=== PATIENT | female | born 1980 | race Caucasian/White ===

== ENCOUNTER 2017-08-10 08:46 | Day surgery (SDC) | payer BC, SELFPAY ==
[2017-08-10] VITALS (7 sets, daily range): BP systolic 122–150; BP diastolic 69–93; PULSE 71–89; RESP 16; TEMP 36.3–36.8; O2SAT 98–100; BMI 24.0
[2017-08-10 09:20] LABS: Internal QC Validated? YES +Cl - CLEAR BKGD; Pregnancy, Urine Negative Negative
[2017-08-10 09:30] LABS: Hematocrit 45.3 % (37-47); Hemoglobin 14.3 g/dl (12.0-15.0); Mean Corp Hgb Conc 31.6 g/gl (32-36); Mean Corpuscular Hgb 29.7 pg (27.0-32.0); Mean Corpuscular Volume 94.2 fL (81-99); Mean Platelet Vol. 9.7 fl (6.2-12.0); Platelet Count 266 K/mm3 (150-450); RBC Distribution Width CV 12.8 % (11.6-14.6); RBC Distribution Width SD 43.8 fl (35.1-43.9); Red Blood Count 4.81 M/mm3 (4.2-5.4)
[2017-08-10 09:37] LABS: Scan Indicated on CBC? Y/N NO
--- NOTE | 2017-08-10 11:11 | PCM.OP.BLANK ---
Operative Report Date of Procedure: 08/10/[address] Courtney Overton-Spencer Bead Stringer:none Preoperative diagnosis: Abnormal uterine bleeding Postoperative diagnosis: Same Procedure performed: Hysteroscopy, dilation and curettage using symphion tissue resection system Complications: None Implantable devices: none Estimated blood loss: 5 cc Drains: None Anesthesia: MAC Informed consent was obtained the patient was taken the operating room she was placed in supine position. She was given anesthesia. She was then placed in the [facility] where she was prepped and draped in the normal sterile fashion. At this time the weighted speculum was placed in the posterior fornix of vagina. Single-tooth tenaculum was used to gently grasp the anterior lip the cervix. At this time the uterine cavity was sounded to approximately 10 cm. Gentle dilatation was performed once adequate dilatation of the cervix was achieved the hysteroscope using normal saline as a distention medium was placed. small amount of tissue noted- one area of thicker tissue but did not appear polypoid was noted on anterior aspect of uterus. Otherwise no gross abnormalities. Tubal ostia visualized. This time hysteroscopy was complete. symphion tissue reresection system was used for endometrial curettings - pressure setting at 90 and. small amount of endometrial tissue removed. This will be sent to pathology for evaluation. Fluid deficit was 200cc however that was some fluid on the floor after procedure so i anticipate that to be less. Procedure was deemed complete successful there are no complications. Anticipated normal postoperative course. Instrument lap count correct ?2. Vaginal Sweep was negative.
--- NOTE | 2017-08-10 11:15 | OP.PCM_ITS ---
Operative Report Date of Procedure: 08/10/[address] Courtney Overton-Spencer Oyster Planter:none Preoperative diagnosis: Abnormal uterine bleeding Postoperative diagnosis: Same Procedure performed: Hysteroscopy, dilation and curettage using symphion tissue resection system Complications: None Implantable devices: none Estimated blood loss: 5 cc Drains: None Anesthesia: MAC Informed consent was obtained the patient was taken the operating room she was placed in supine position. She was given anesthesia. She was then placed in the [facility] where she was prepped and draped in the normal sterile fashion. At this time the weighted speculum was placed in the posterior fornix of vagina. Single-tooth tenaculum was used to gently grasp the anterior lip the cervix. At this time the uterine cavity was sounded to approximately 10 cm. Gentle dilatation was performed once adequate dilatation of the cervix was achieved the hysteroscope using normal saline as a distention medium was placed. small amount of tissue noted- one area of thicker tissue but did not appear polypoid was noted on anterior aspect of uterus. Otherwise no gross abnormalities. Tubal ostia visualized. This time hysteroscopy was complete. symphion tissue reresection system was used for endometrial curettings - pressure setting at 90 and. small amount of endometrial tissue removed. This will be sent to pathology for evaluation. Fluid deficit was 200cc however that was some fluid on the floor after procedure so i anticipate that to be less. Procedure was deemed complete successful there are no complications. Anticipated normal postoperative course. Instrument lap count correct ?2. Vaginal Sweep was negative.
--- NOTE | 2017-08-10 11:16 | PCM.DC.D&C ---
Discharge Diet: No Restrictions Discharge Activity: Return to Normal Activity, May Shower, May Take a Tub Bath - in 2 weeks. Allergies/Adverse Reactions: Allergies No Known Allergies Allergy (Verified 09/04/16 08:08) Medications to take at Discharge Pnv95/Ferrous Fumarate/FA [ Formula Tablet] 1 each PO DAILY 04/25/16 Cetirizine HCl [Zyrtec] 10 mg PO DAILY 08/03/17 Fluticasone 0.05% [Flonase Nasal [place]] 1 spray NASAL PRN PRN 08/03/17 Ibuprofen [Motrin] 600 mg PO Q6H PRN PRN 08/03/17 Norethindrone-E.estradiol-Iron [Loestrin Fe 1-20 Tablet] 1 each PO 08/03/17 Omeprazole [Prilosec] 20 mg PO DAILY 08/03/17 Primary Care Physician: Rabia Alves MD [Primary Care Provider] -
[2017-08-10] MEDS: Ondansetron 8 MG Tablet PO (12:22)
--- NOTE | 2017-08-11 | EMB_PTH ---
PATIENT: SAEED CESPEDES LOC: [facility] U#:[id number] AGE/SX: 37/F ROOM: RE08/10/[address]: Dr. Courtney Gregory, MDDOB: 1980 BED: DIS: 08/10/2017 SPEC #: [id number] RECD: 08/11/17 13:26 STATUS: MILLA MIRA #: [id number] TICO: 08/11/17 00:[address]: Courtney Gregory DEPT: SURGICAL PATHOLOGY RECD BY: Jabari Evans ENTERED: 08/11/17 13:26 SP TYPE: ENDOM BX/C OTHR DR: Dr. Rabia Alves MD Tissues: Endometrium, NOS Procedures: Surgery Specimen Level IV HEADER OPERATION: Hysteroscopy, D&C symphion polypectomy PRE-OP DIAGNOSIS: Abnormal uterine bleeding, endometrial polyp TISSUE SUBMITTED: Endometrial curettings MICROSCOPIC DIAGNOSIS Endometrial curettings: Fragments of benign endometrial tissue with extensive stromal breakdown. Focal changes suggestive of benign endometrial polyp. Fragments of myometrium. AUNG:marvin 08/14/17 MICROSCOPIC DESCRIPTION Slides are reviewed. GROSS DESCRIPTION Received in fixative is one container labeled with the patient's name and designated endometrial curettings. The specimen consists of multiple irregular fragments of garcia soft tissue mixed with blood clot that in aggregate measure 2.5 x 1.5 x 0.1 cm. The specimen is totally submitted in one cassette. AUNG:marvin 08/11/17 TC:5 CPT: 55896
== END 2017-08-10 12:50 | disposition home or self-care (01) ==
LOC: SDC 08:51 → AC 08:53
PROVIDERS: Family Provider Internal Medicine; PCP Internal Medicine; Visit Provider Obstetrics & Gynecology
PROC: (CPT 58558; principal; 2017-08-10 10:25)
DX: N93.9 Abnormal uterine and vaginal bleeding, unspecified (principal); N84.0 Polyp of corpus uteri; I34.1 Nonrheumatic mitral (valve) prolapse; Z79.899 Other long term (current) drug therapy
CPT/HCPCS: 00952; 58558; 81025; 85027; 88305; J7120; J2405

== ENCOUNTER 2018-11-16 07:05 | Inpatient (IN) | payer BC, SELFPAY ==
[2017-08-10 09:17] VITALS: BMI 24.0
[2018-11-16 07:16] VITALS: BMI 30.1
[2018-11-16] MEDS: Lactated Ringers 1,000 ML 50 ML IV (07:30)
[2018-11-16] MEDS: Oxytocin 30 units/NS 500 ml 30 UNITS/500 ML IV.SOLN IV (07:52)
[2018-11-16 07:53] LABS: Absolute Lymphocyte Count 1.39 X10^3/uL (0.83-4.51); Absolute Neutrophil Count 6.4 X10^3/uL (2.0-7.7); Basophil# 0.01 X10^3/uL; Basophil% 0.1 % (0-1); Eosinophil# 0.08 X10^3/uL; Eosinophils% 0.9 % (0-5); Hematocrit 38.8 % (37-47); Lymphocyte # 1.39 X10^3/ul (4.0); Lymphocyte % 16.5 % (19-41); Mean Corp Hgb Conc 33.5 g/dL (32-36); Mean Corpuscular Hgb 32.7 pg (27.0-32.0); Mean Corpuscular Volume 97.5 fL (81-99); Monocyte# 0.53 X10^3/uL; Monocyte% 6.3 % (0-10); NRBC Flagged by Analyzer 0 % (0-5); Neutrophil # 6.36 X10^3/uL (2.7-7.7); Neutrophil % 75.5 % (47-70); Platelet Count 162 K/mm3 (150-450); RBC Distribution Width CV 14.3 % (11.6-14.6); Red Blood Count 3.98 M/mm3 (4.2-5.4); White Blood Count 8.4 K/mm3 (4.4-11.0)
--- NOTE | 2018-11-16 08:28 | PCM.HP.OB ---
History Date of Admission: 11/16/18 Final RYAN: 11/16/18 Final RYAN Source: US <20 weeks Gestational age: 40 Weeks and 0 Days History of this : This is a 38 year-old, G 2P1 at 40 weeks gestation. Patient here for induction of labor for AMA. It is /2. Membranes intact. Allergies No Known Allergies Allergy (Verified 11/16/18 07:18) Home Medications: Home Medications Pnv No.95/Ferrous Fum/Folic AC [ Formula Tablet] 1 each PO DAILY 04/25/16 Smoking Status: Never smoker Alcohol: None Number of Fetus(es): 1 NST - FHR Rate Baby A Baseline: 150 Variability:: Moderate Accelerations:: 15 x 15 Decelerations:: None NST Reactive:: Yes FHR Category:: Category I Uterine Activity:: q2-5 History Past Pregnancies: Past Pregnancies Delivery Date Name GA/Weeks Outcome Route Weight Gender Labor Length Anesthesia Delivery Location Provider FOB Labs: A+, Rub imm, hep B neg, HIV NR GBS positive Expected Infant Delivery Method: Spontaneous Vaginal Review of Systems Constitutional: Denies: Anorexia Cardiovascular: Denies: Chest Pain Gastrointestinal: Denies: Abdominal Pain Physical Exam General: Alert, Oriented x3 Abdomen: Soft, Non Tender, Gravid Neurological: Cranial nerves II-XII grossly intact DYE BOX OPERATOR: Normal external genitalia Estimated gestational size: Appropriate for gestational size Presentation: Cephalic Cervix Dilation (cm): 4 Station: -2 Effacement (%): 70 Assessment/Plan This is a 38 year-old, G 2P1 at 40 weeks gestation-here for induction of labor for advanced maternal age. admit to L&D [facility] fhr/toco PCN for GBS Anticipate AROM performed- CLEAR
--- NOTE | 2018-11-16 12:11 | PCM.PN.BLA ---
Progress Note Pt seen at bedside, doing well. VE: /-2. Continue Pitocin.
[2018-11-16] MEDS: Oxytocin 30 units/NS 500 ml 30 UNITS/500 ML IV.SOLN 334 UNITS IV (14:06)
--- NOTE | 2018-11-16 14:21 | PCM.OPRPT ---
Vaginal Delivery Maternal Presentation: Medically Indicated Induction Method of Induction: Pitocin, Amniotomy Medical Reason for Induction: - - AMA Amniotic Membrane Rupture Type: Artificial Amniotic Fluid Description: Clear Final RYAN: 11/16/18 Final RYAN Source: US <20 weeks Gestational age: 40 Weeks and 0 Days Date of Procedure: 11/16/18 Pre-Operative Diagnosis: AMA, term gestation Post-Operative Diagnosis: live male Surgery/ Procedure Performed: Spontaneous Vaginal Delivery Type of Anesthesia: - - nitrous oxide Description of Procedure: prolonged patient down to 43 bpm. At this time patient was complete pushing with good maternal effort. an RML episiotomy was made to expedite delivery. was delivered with nuchal x1 reduced prior to delivery of the infant's shoulders. And also compound hand Presentation. delivered and cord clamped and cut- nursery evaluated infant. Presentation: Vertex Placental Delivery Description: Spontaneous Placenta Disposition: [facility] Cord Vessel Description: 3 Vessels Nuchal Cord Compression: With compression Cord Gases drawn per routine: ABG, VBG Cord Entanglement: Around neck x 1, loose Estimated Blood Loss: 350 A gender: Male (1 minute): 8 (5 minute): 9 Episiotomy Description: Right Mediolateral - repaired with 2-0 vicryl and 3-0 rapide. lidocaine injected prior to repair., 2nd degree Laceration: None Medications given after delivery: IV Pitocin Complications: None
[2018-11-16] MEDS: Ibuprofen 600 MG Tablet PO ×2 (16:42→22:40)
[2018-11-16] MEDS: 0.9% Saline Lock 10 ML Syringe IV (16:52)
[2018-11-16 17:45] VITALS: BP 131/67; PULSE 59; RESP 20; TEMP 37.6; O2SAT 97
[2018-11-16 23:35] VITALS: BP 114/74; PULSE 90; RESP 16; TEMP 36.4
[2018-11-17 03:38] VITALS: BP 106/69; PULSE 90; RESP 16; TEMP 36.5
--- NOTE | 2018-11-17 07:43 | PCM.PN.OB ---
Subjective: Seen at bedside, doing well. Patient reports mild lochia. Pain well controlled. Voiding without difficulty. Breast-feeding well. Is supplementing due to baby's blood sugar. Patient requesting DC home today if baby is discharged - Physical Exam General: Alert, Oriented x3 Abdomen: Soft, Non Tender, - - fundus firm Extremities: No Calf Tenderness Vital Signs Temp Pulse Resp BP Pulse Ox 97.7 F L 90 16 106/69 97 11/17/18 03:38 11/17/18 03:38 11/17/18 03:38 11/17/18 03:38 11/16/18 17:45 Oxygen Delivery Method Room Air Weight: 95.254 kg Body Mass Index (BMI) 30.1 Intake and Output for Last 24 Hours 11/15/18 11/16/18 11/17/18 23:59 23:59 23:59 Intake Total 1112.23 / 1112.23 Output Total 1925 / 1925 Balance -812.77 / -812.77 Laboratory Tests Past 24 Hrs 11/16/18 11/16/18 07:30 07:30 WBC 8.4 RBC 3.98 L Hgb 13.0 Hct 38.8 MCV 97.5 MCH 32.7 H MCHC 33.5 RDW Std Deviation 51.0 H RDW Coeff of Garcia 14.3 Plt Count 162 MPV 10.0 Immature Gran % (Auto) 0.700 Neut % (Auto) 75.5 H Lymph % (Auto) 16.5 L [place] % (Auto) 6.3 Eos % (Auto) 0.9 Baso % (Auto) 0.1 Absolute Neuts (auto) 6.4 Absolute Lymphs (auto) 1.39 Nucleated RBC % 0 Blood Type A POSITIVE Antibody Screen NEGATIVE Medical Necessity - Tobacco Use Smoking Status: Never smoker Assessment/Plan PPD#1, doing well routine care pain mgmt dc home
--- NOTE | 2018-11-17 07:45 | DCINST_ITS ---
Discharge Diet: No Restrictions Discharge Activity: Return to Normal Activity, May not drive while taking narcotic pain medications., May Shower May resume sexual activity in: 4-6 weeks Additional Activity Instructions:: Nothing in the vagina for 4-6 weeks. You may return to work/school in 6 weeks. Call your doctor if your incision/area has: Continuous Slow Oozing, Sudden Increased Bleeding, Increased Pain/ Swelling, Increased Redness, Foul Smelling Discharge Additional Instructions: If you experience any of the following, contact your healthcare provider. * Bleeding that soaks a pad every hour for 2 hours * Fever 100.4 or higher * Unrelieved incision or abdominal pain * Swelling, redness, discharge or bleeding from your incision or episiotomy site * Your incision begins to separate * Problems urinating (including inability to urinate or burning while urinating). * Visual changes * Severe headache * Flu-like symptoms * Pain or redness in one of both of your breasts * Pain, warmth, tenderness or swelling in your legs, especially the calf area * Frequent nausea and vomiting * Symptoms of depression or anxiety If you experience any of the following, call 911 or go to the nearest Emergency Room. * Chest pain * Problems breathing * Seizure activity * Partial or complete paralysis of a body part, slurred speech, weakness or drooping of the face, or a sudden inability to walk or hold your balance Allergies/Adverse Reactions: Allergies No Known Allergies Allergy (Verified 11/16/18 07:18) Medications to take at Discharge Pnv No.95/Ferrous Fum/Folic AC [ Formula Tablet] 1 each PO DAILY 04/25/16 Ibuprofen [Motrin] 600 mg PO Q6H PRN PRN #30 tab 11/17/18 The following prescriptions were given: Ibuprofen [Motrin] 600 mg PO Q6H PRN PRN #30 tab PRN Reason: Pain Score 1-04/22 Transmission Status: Pending to [id number] When: Call to make an appointment with your doctor in 6 weeks. If you had elevated Blood Pressure or 4th degree laceration you will need to be seen in 2 weeks. Primary Care Physician: Rabia Alves MD [Primary Care Provider] - Test Results: Test results from this visit will be discussed in further detail at your follow- up appointment, if applicable.
[2018-11-17 08:15] VITALS: BP 124/83; PULSE 94; RESP 16; TEMP 36.5; O2SAT 97
[2018-11-17] MEDS: Ibuprofen 600 MG Tablet PO (08:56)
[2018-11-17 14:10] VITALS: BP 132/80; PULSE 92; RESP 16; TEMP 36.3; O2SAT 98
== END 2018-11-17 17:10 | disposition home or self-care (01) | DRG 807 ==
PROVIDERS: Admitting Provider Obstetrics & Gynecology; Family Provider Internal Medicine; PCP Internal Medicine; Referring Provider Obstetrics & Gynecology; Visit Provider Obstetrics & Gynecology
DX: O32.6XX0 Maternal care for compound presentation, not applicable or unspecified (principal); Z37.0 Single live birth; O69.1XX0 Labor and delivery complicated by cord around neck, with compression, not applicable or unspecified; Z3A.40 40 weeks gestation of pregnancy
CPT/HCPCS: 59025; 59050; 85025; 86850; 86900; 86901; 99218; J7120; A4216; G0378

== ENCOUNTER → 2019-03-11 13:42 | Outpatient (CLI) | payer SELFPAY | PROVIDERS: PCP Internal Medicine; Referring Provider Clinical Nurse Specialist; Visit Provider Clinical Nurse Specialist | DX: R00.1 Bradycardia, unspecified (principal); I34.0 Nonrheumatic mitral (valve) insufficiency; I49.9 Cardiac arrhythmia, unspecified; R00.2 Palpitations | CPT/HCPCS: 93225; 93226 ==

== ENCOUNTER → 2019-03-25 13:44 | Outpatient (CLI) | payer SELFPAY ==
[2019-03-21 15:49] VITALS: BMI 26.3
--- NOTE | 2019-03-25 13:47 | ECHOCS_ITS ---
Reason For Study: MVP Procedure This was a 2D Doppler, Color Flow transthoracic echocardiogram. The study was technically difficult. Contrast injection was performed. Exam performed in department. Left Ventricle Border line enlarged left ventricle. Mild global left ventricular systolic dysfunction. The estimated ejection fraction is 45 %. Diastolic function is indeterminate. Right Ventricle Normal RV size. Normal systolic function. Atria Normal left atrium. Normal right atrium. Hypermobile atrial septum. Positive agitated saline contrast study for a right to left interatrial shunt compatible with a small PFO versus ASD. Mitral Valve There is no mitral annular calcification. Mild diffuse mitral valve thickening. Mild mitral valve prolapse. Mild (1+) eccentric mitral valve insufficiency. Tricuspid Valve Normal tricuspid valve. Trivial tricuspid valve insufficiency. Unable to estimate RV systolic pressure/pulmonary artery pressure due to technically difficult study. Aortic Valve Trisinus/trileaflet aortic valve. Normal aortic valve. Pulmonic Valve The pulmonic valve is not well visualized. Trivial pulmonic valve insufficiency. Great Vessels Normal sized aortic root. Pericardium/Pleural No pericardial effusion. Medication Performed a rapid injection of agitated mix of 9 cc saline and 1cc air to assess for atrial septal defect. Diluted definity 5ml given slow IV push to enhance endocardial definition. MMode/2D Measurements & Calculations LVIDd: 5.6 cm IVSd: 0.95 cm Ao root diam: 3.2 cm LVIDs: 4.2 cm LVPWd: 0.91 cm RVDd: 4.5 cm FS: 26.2 % LAV(MOD-bp): 53.6 ml LA A4 area: 15.6 cm2 LA dimension(2D): 3.9 cm LAV(MOD-bp) Indexed: 27.1 ml/m2 LAV(MOD-sp2): 67.0 ml LAV(MOD-sp4): 33.9 ml RA A4 area: 14.6 cm2 Doppler Measurements & Calculations MV E max tommy: 56.5 cm/sec Lat Peak E' Tommy: 3.9 cm/sec Med Peak E' Tommy: 6.5 cm/sec MV A max tommy: 48.3 cm/sec E/E' lat: 14.4 E/E' med: 8.8 MV E/A: 1.2 Ao V2 max: 115.4 cm/sec LV V1 max: 95.7 cm/sec PA V2 max: 101.1 cm/sec Ao max P.3 mmHg LV V1 max P.7 mmHg Ao V2 mean: 87.6 cm/sec Ao mean P.3 mmHg Ao V2 VTI: 21.6 cm Interpretation Summary The study was technically difficult. Contrast injection was performed. Border line enlarged left ventricle. Mild global left ventricular systolic dysfunction. The estimated ejection fraction is 45 %. Hypermobile atrial septum. Mild diffuse mitral valve thickening. Mild mitral valve prolapse. Mild (1+) eccentric mitral valve insufficiency. Trivial tricuspid valve insufficiency. Trivial pulmonic valve insufficiency. Unable to estimate RV systolic pressure/pulmonary artery pressure due to technically difficult study. Diastolic function is indeterminate. Ordering Physician: Robert Wheeler Referring Physician: Rabia Alves Performed By: Corie Guajardo, KHALIDA, RVT
== END ==
PROVIDERS: PCP Internal Medicine; Referring Provider Internal Medicine Cardiovascular Disease; Visit Provider Internal Medicine Cardiovascular Disease
DX: I34.1 Nonrheumatic mitral (valve) prolapse (principal); I34.0 Nonrheumatic mitral (valve) insufficiency
CPT/HCPCS: 93306; Q9957; A4216; C8929

== ENCOUNTER → 2019-04-09 10:46 | Outpatient (CLI) | payer SELFPAY ==
[2019-03-21 15:49] VITALS: BMI 26.3
--- NOTE | 2019-04-09 12:53 | STRESSREP ---
Stress Test Report Date: 04-09-2019 Procedure: Exercise tolerance test Indications: Ventricular ectopy (PVCs; nonsustained VT); cardiomyopathy Consent: Per the patient Procedure: The patient exercised on a Ray protocol for 9 minutes completing Stage III achieving a peak heart rate of 173 bpm (94 % predicted maximal heart rate) with a peak blood pressure 164/94 mmHg and a peak MET capacity of approximately 10 mET's. The baseline ECG demonstrated normal sinus rhythm. The peak exercise ECG demonstrated [id number] nonspecific ST segment variability with approximately 0.5 to 1.0 mm of horizontal/upsloping ST segment depression in leads II, III, and aVF with resolution towards baseline by approximately 1 minute in recovery. There were frequent PVCs (multiform/bidirectional appearing) pretest, during exercise, and recovery; occasional ventricular couplets/triplets during exercise; intermittent episodes of ventricular bigeminy during pretest, exercise, and recovery. The functional capacity was considered good. The patient had no complaint of chest discomfort during exercise or recovery. The examination was discontinued secondary to dyspnea. Impression: 1. Technically adequate (percent predicted maximal heart rate greater than 85%) exercise tolerance test 2. Peak exercise ECG with beat to beat nonspecific ST segment variability with approximately 0.5 to 1.0 mm of horizontal/upsloping ST segment depression in leads II, III, and aVF with resolution towards baseline by approximately 1 minute in recovery 3. There were frequent PVCs (multiform/bidirectional appearing) pretest, during exercise, and recovery; occasional ventricular couplets/triplets during exercise; intermittent episodes of ventricular bigeminy during pretest, exercise, and recovery This note was generated with Preis[employer] software. It may contain incorrect words, spelling, and punctuation that were not noted in checking the note before signing.
== END ==
PROVIDERS: PCP Internal Medicine; Referring Provider Internal Medicine Cardiovascular Disease; Visit Provider Internal Medicine Cardiovascular Disease
DX: I49.3 Ventricular premature depolarization (principal); I34.0 Nonrheumatic mitral (valve) insufficiency; I34.1 Nonrheumatic mitral (valve) prolapse
CPT/HCPCS: 93017

== ENCOUNTER → 2019-09-02 13:54 | Outpatient (CLI) | payer OTHER, SELFPAY ==
[2019-08-28 10:45] VITALS: BMI 26.4
== END ==
PROVIDERS: PCP Internal Medicine; Referring Provider Internal Medicine Cardiovascular Disease; Visit Provider Internal Medicine Cardiovascular Disease
DX: I49.3 Ventricular premature depolarization (principal)
CPT/HCPCS: 93225; 93226

== ENCOUNTER → 2019-11-28 13:34 | Outpatient (CLI) | payer OTHER, SELFPAY ==
[2019-08-28 10:45] VITALS: BMI 26.4
[2019-11-28 14:49] LABS: Homocysteine 6.7 umol/L (3.2-10.7)
[2019-11-28 14:52] LABS: Prothrombin Time (Protime)PT. 12.6 SECONDS (11.7-14.9)
[2019-12-01 20:07] LABS: Dilute Prothrombin Time (dPT) 41.7 sec (0.0-55.0); Dilute Russell Viper Venom 35.2 sec (0.0-47.0); Factor VIII Activity 92 % (56-140); Thrombin Time 18.1 sec (0.0-23.0); dPT Confirm Ratio 0.97 Ratio (0.00-1.40)
[2019-12-02 11:32] LABS: Factor XI Activity 98 % (60-150); Interpretation Comment: (.); Protein S, Free 108 % (57-157); Protein S, Total 78 % (60-150)
== END ==
PROVIDERS: PCP Internal Medicine
CPT/HCPCS: 36415; 83090; 85240; 85270; 85305; 85306; 85610

== ENCOUNTER 2020-01-06 00:14 | Emergency (ER) | payer OTHER, SELFPAY ==
[2019-11-28 14:03] VITALS: BMI 26.4
[2020-01-06] VITALS (10 sets, daily range): BP systolic 94–133; BP diastolic 42–68; PULSE 56–87; RESP 16–25; TEMP 37.1; O2SAT 96–100; BMI 25.9
--- NOTE | 2020-01-06 00:25 | RAD_ITS ---
HISTORY: C/O CPSTATED SHE HAD Tquot;A HOLE IN HEART REPAIREDTquot; ON 01/02 ADDITIONAL HISTORY: None provided. EXAMINATION/TECHNIQUE: XR Chest 1 View AP/PA Number of images including paperwork: 1 COMPARISON: None FINDINGS: LUNGS AND PLEURA: No consolidation, mass or pleural effusion. CARDIAC SILHOUETTE: Unremarkable. MEDIASTINUM AND MURPHY: Unremarkable. UPPER ABDOMEN: Unremarkable. SKELETON AND SOFT TISSUES: No acute skeletal findings. OTHER DEVICES AND HARDWARE: Atrial closure device. RAD/Chest 1 View (Portable) IMPRESSION: No acute cardiopulmonary abnormality. at 0041 Reported and signed by: Louise Melara MD Electronically Signed: Louise Melara MD at 0:41 EST Tel , Service support ,
--- NOTE | 2020-01-06 00:25 | EKG12_ITS ---
Test Reason : CP Blood Pressure : / mmHG Vent. Rate : 070 BPM Atrial Rate : 070 BPM P-R Int : 138 ms QRS Dur : 094 ms QT Int : 416 ms P-R-T Axes : 055 075 055 degrees QTc Int : 449 ms Sinus rhythm with frequent Premature ventricular complexes in a pattern of bigeminy Lateral infarct , age undetermined Abnormal ECG Confirmed by KRISTI HIGGINS, EDWARD ([id number]), restaurant expeditor SKYLER GARLAND ([id number]) on 01/08/2020 10:35:41 AM Referred By: SHAWNA Confirmed By:EDWARD BERRY MD
[2020-01-06 00:35] LABS: Absolute Lymphocyte Count 1.85 X10^3/uL (0.83-4.51); Absolute Neutrophil Count 8.5 X10^3/uL (2.0-7.7); Basophil# 0.04 X10^3/uL; Basophil% 0.3 % (0-1); Eosinophils% 1.7 % (0-5); Hematocrit 40.8 % (37-47); Hemoglobin 13.6 g/dL (12.0-15.0); Lymphocyte # 1.85 X10^3/ul (4.0); Lymphocyte % 16.2 % (19-41); Mean Corp Hgb Conc 33.3 g/dL (32-36); Mean Corpuscular Hgb 31.9 pg (27.0-32.0); Mean Corpuscular Volume 95.6 fL (81-99); Mean Platelet Vol. 9.9 fl (6.2-12.0); NRBC Flagged by Analyzer 0 % (0-5); Neutrophil % 74.3 % (47-70); Platelet Count 220 K/mm3 (150-450); RBC Distribution Width CV 12.6 % (11.6-14.6); RBC Distribution Width SD 44.5 fl (35.1-43.9); Red Blood Count 4.27 M/mm3 (4.2-5.4); White Blood Count 11.5 K/mm3 (4.4-11.0)
--- NOTE | 2020-01-06 00:36 | ED.DCSUM_ITS ---
- ER Visit Summary Date of Service: 01/06/20 Chief Complaint: [Chest pain] History of Present Illness: The patient is a 39 F [presents to the emergency department complaint of chest pain that started this evening. Patient states that she went to bed at 8:30 PM and awoke with pain in her chest that she desc ribes as a continuous tightness and dull ache that radiates into her neck. Patient feels somewhat short of breath with it. She denies any diaphoresis. Patient states that she just had an atrial septal defect repair performed endovascularly at [facility] in [place] 3 days ago. Patient has history of cardiomyopathy related the . Patient has history of mitral valve prolapse and mitral regurg. She does have history of PVCs. No history of PE or DVT.] Physical Examination: [HEENT-PERRLA, EOMI. Cranial nerves II through XII grossly intact. TMs clear. Mucous membranes moist. No adenopathy. Cardiovascular-regular rate and rhythm without murmur or ectopy Lungs-clear to auscultation, chest wall stable without crepitus or subcu emphysema Abdomen-normoactive bowel sounds, soft, nontender, no rebound or rigidity, no peritoneal signs. Extremities-intact ?4, normal range of motion, normal pulses, atraumatic] Test Results: [EKG obtained on arrival showed a sinus rhythm with a ventricular rate of 70 bpm with frequent PVCs and bigeminy fashion.] CBC with it showed a white count 11.5, hemoglobin 13.6, hematocrit 41, platelets 220. Chemistries unremarkable. D-dimer was 0.57. Troponin less than 0.015. Chest x-ray showed nothing acute it did show a atrial septal device in place. CTA of the chest was negative for PE or dissection. Incidentally she had a liver mass noted that was thought to possibly be a hemangioma and recommended further evaluation with MRI as an outpatient. Emergency Department Course and Treatment: [IV line established. Patient placed on cardiac catheterization technician. Patient initially given aspirin and sublingual nitro which seemed to help her discomfort.] Treatment Plan: [Case was discussed with scorekeeper at [facility] Dr. Corbin who recommended transfer to their facility for further evaluation of patient's chest pain. They would like to evaluate her atrial septal device to determine if functioning properly and make sure it has not migrated.] Disposition: [Transfer] Impression: [Chest [id number] uncertain] This note was generated with [employer] dictation software. It may contain incorrect words, spelling, and punctuation that were not noted in review of the chart prior to signing ED Disposition - Plan for ED Patient: Referrals: Rabia Alves MD [Primary Care Provider] -
[2020-01-06] MEDS: Aspirin 81 MG TAB.CHEW 324 MG PO (00:37)
[2020-01-06 00:51] LABS: D-Dimer Quantitative (DVT/PE) 0.57 FEU/ug/m (0.27-0.49)
--- NOTE | 2020-01-06 00:51 | CT_ITS ---
HISTORY: CP, ELEVATED D-DIMER, PT HAD HEART CATH ON MONDAY, FOUND TO HAVE ATRIAL SEPTAL DEFECT, HX MVP ADDITIONAL HISTORY: None provided. EXAMINATION/TECHNIQUE: CTA Chest WO/W Contrast Injection PULMONARY EMBOLISM PROTOCOL: 2D and 3D images to include MIP and/or volume rendered images CONTRAST: IV 75 mL [id number] Number of images including paperwork: 1087 A radiation dose optimization technique was used for this scan. COMPARISON: None FINDINGS: PULMONARY ARTERIES: No pulmonary arterial filling defects. AORTA AND GREAT VESSELS: Unremarkable. HEART/PERICARDIUM: Unremarkable. MEDIASTINUM: Unremarkable. ADENOPATHY: No pathologic appearing adenopathy. THYROID: Unremarkable visualized portions. LUNG PARENCHYMA: No consolidation or mass. Mild basilar atelectasis. PLEURAL SPACES: Unremarkable. UPPER ABDOMEN: 9.0 x 8.5 cm right lobe liver mass partially visualized with some probable faint peripheral discontinuous enhancement which suggests hemangioma although this is incompletely characterized. OSSEOUS AND SOFT TISSUE STRUCTURES: No acute skeletal findings. Mild degenerative changes. DEVICES: Atrial closure device. CT/CTA Chest W/WO Contrast IMPRESSION: 1. No pulmonary embolus detected. 2. Incompletely characterized right lobe liver mass. Nonemergent follow-up MRI without and with contrast recommended for further characterization. Individualized dose optimization techniques were used for this CT. at 0137 Reported and signed by: Louise Melara MD Electronically Signed: Louise Melara MD at 1:37 EST Tel , Service support ,
[2020-01-06 00:54] LABS: Anion Gap 7 (5-15); BUN 10 mg/dL (7-18); BUN/Creat Ratio 12.5 RATIO (10-20); Chloride 108 mmol/L (98-107); EST Glomerular Filtration Rate 86 mL/min (>60); Est Glom Filt Rate - Afr Amer 104 mL/min (>60); Estimated Creatinine Clearance 100.62 ml/min; Glucose 105 mg/dL (74-106); Potassium 3.4 mmol/L (3.5-5.1); Sodium Level 140 mmol/L (136-145)
[2020-01-06] MEDS: Nitroglycerin SL (ED/IMG/CATH) 0.4 MG TABLET SUBLINGUAL ×2 (00:55→01:02)
[2020-01-06] MEDS: 0.9% Normal Saline 1,000 ML 150 ML IV (00:56)
== END 2020-01-06 07:10 | disposition short-term general hospital (02) ==
LOC: ED 00:46
PROVIDERS: Emergency Provider Emergency Medicine; PCP Internal Medicine
DX: R07.89 Other chest pain (principal); Z87.74 Personal history of (corrected) congenital malformations of heart and circulatory system; R16.0 Hepatomegaly, not elsewhere classified; I34.1 Nonrheumatic mitral (valve) prolapse; I34.0 Nonrheumatic mitral (valve) insufficiency; I49.3 Ventricular premature depolarization; Z79.82 Long term (current) use of aspirin; Z79.02 Long term (current) use of antithrombotics/antiplatelets
CPT/HCPCS: 71045; 71275; 80048; 84484; 85025; 85379; 93005; 96360; 96361; 99285; J7030; Q9967; A4216

== ENCOUNTER → 2020-02-11 13:26 | Outpatient (CLI) | payer OTHER, SELFPAY ==
[2020-01-06 00:15] VITALS: BMI 25.9
== END ==
PROVIDERS: PCP Internal Medicine; Visit Provider Physician Assistant Medical
DX: Q21.1 Atrial septal defect (principal); I34.1 Nonrheumatic mitral (valve) prolapse; I49.3 Ventricular premature depolarization
CPT/HCPCS: 93225; 93226

== ENCOUNTER → 2020-05-11 14:12 | Outpatient (CLI) | payer OTHER, SELFPAY ==
[2020-04-29 14:56] VITALS: BMI 26.9
[2020-05-11 15:20] LABS: Potassium 3.8 mmol/L (3.5-5.1)
[2020-05-12 10:29] LABS: Magnesium 2.1 mg/dL (1.6-2.6)
== END ==
PROVIDERS: PCP Internal Medicine; Referring Provider Internal Medicine Cardiovascular Disease; Visit Provider Internal Medicine Cardiovascular Disease
DX: I49.3 Ventricular premature depolarization (principal); Z79.899 Other long term (current) drug therapy
CPT/HCPCS: 36415; 83735; 84132

== ENCOUNTER → 2020-06-01 09:24 | Outpatient (CLI) | payer OTHER, SELFPAY ==
[2020-04-29 14:56] VITALS: BMI 26.9
[2020-06-01 10:13] LABS: Magnesium 1.9 mg/dL (1.6-2.6); Potassium 3.7 mmol/L (3.5-5.1)
== END ==
PROVIDERS: PCP Internal Medicine; Referring Provider Internal Medicine Cardiovascular Disease; Visit Provider Internal Medicine Cardiovascular Disease
DX: I49.3 Ventricular premature depolarization (principal); Z79.899 Other long term (current) drug therapy
CPT/HCPCS: 36415; 83735; 84132

== ENCOUNTER → 2020-06-22 13:20 | Outpatient (CLI) | payer OTHER, SELFPAY ==
[2020-04-29 14:56] VITALS: BMI 26.9
== END ==
PROVIDERS: PCP Internal Medicine; Referring Provider Internal Medicine Cardiovascular Disease; Visit Provider Internal Medicine Cardiovascular Disease
DX: I49.3 Ventricular premature depolarization (principal)
CPT/HCPCS: 93225; 93226

== ENCOUNTER → 2020-06-22 13:41 | Outpatient (CLI) | payer OTHER, SELFPAY ==
[2020-04-29 14:56] VITALS: BMI 26.9
[2020-06-22 14:42] LABS: Potassium 3.9 mmol/L (3.5-5.1)
== END ==
PROVIDERS: PCP Internal Medicine; Referring Provider Internal Medicine Cardiovascular Disease; Visit Provider Internal Medicine Cardiovascular Disease
DX: I49.3 Ventricular premature depolarization (principal); Z79.899 Other long term (current) drug therapy
CPT/HCPCS: 36415; 83735; 84132

== ENCOUNTER → 2021-06-23 | Outpatient (CLI) | payer OTHER, SELFPAY | END | disposition home or self-care (01) | LOC: PSN 07:20 | PROVIDERS: PCP Internal Medicine; Referring Provider Internal Medicine Cardiovascular Disease; Visit Provider Internal Medicine Cardiovascular Disease | DX: I49.3 Ventricular premature depolarization (principal) | CPT/HCPCS: 93225; 93226 ==

== ENCOUNTER → 2021-08-24 | Outpatient (CLI) | payer OTHER, SELFPAY | END | disposition home or self-care (01) | PROVIDERS: PCP Internal Medicine; Referring Provider Internal Medicine Cardiovascular Disease; Visit Provider Internal Medicine Cardiovascular Disease | DX: I49.3 Ventricular premature depolarization (principal) | CPT/HCPCS: 93225; 93226 ==

== ENCOUNTER → 2022-07-26 | Outpatient (CLI) | payer OTHER, SELFPAY ==
[2022-07-26 13:52] LABS: ALB/GLOB Ratio 0.8 RATIO (0.9-2.4); AST(SGOT) 8 U/L (15-37); Alanine Aminotransfer ALT/SGPT 16 U/L (13-56); Albumin, Serum 3.5 g/dL (3.2-5.0); Alkaline Phosphatase 36 U/L (45-117); Anion Gap 3 (5-15); BUN 11 mg/dL (7-18); BUN/Creat Ratio 13.5 RATIO (10-20); Calcium,Total 8.9 mg/dL (8.5-10.1); Chloride 107 mmol/L (98-107); Creatinine, Serum 0.81 mg/dL (0.55-1.02); EST Glomerular Filtration Rate 83 mL/min (>60); Est Glom Filt Rate - Afr Amer 100 mL/min (>60); Globulin 4.4 g/dL (2.2-4.2); Glucose 84 mg/dL (74-106); Potassium 3.5 mmol/L (3.5-5.1); Protein, Total 7.9 g/dL (6.4-8.2); Sodium Level 137 mmol/L (136-145)
== END | disposition home or self-care (01) ==
LOC: LAB 13:08
PROVIDERS: PCP Internal Medicine; Referring Provider Nurse Practitioner Family; Visit Provider Nurse Practitioner Family
DX: E87.6 Hypokalemia (principal)
CPT/HCPCS: 36415; 80053